=== PATIENT | male | born 1975 | race Caucasian/White ===

== ENCOUNTER 2019-05-31 00:45 | Emergency (ER) | payer OTHER ==
--- NOTE | 2019-05-31 01:28 | ED ---
Alcohol HPI - General Chief Complaint: Alcohol Stated Complaint: ETOH Time Seen by Provider: 05/31/19 00:51 Source: patient, EMS Mode of arrival: EMS Limitations: no limitations - History of Present Illness Initial Comments: Leo is a 43yo alcoholic male who presents to the emergency department via ambulance for evaluation of alcohol intoxication. Patient was found to be sleeping in a restroom of a local gas station, police were called, patient was found to be intoxicated and decision was made to have him transported to the hospital for evaluation. Patient reports he drank a fifth of vodka today. He reports that he drinks every day. Patient reports he is currently homeless and walks around all day every day. Patient denies any thoughts of self-harm, suicidal ideation. MD Complaint: alcohol intoxication - Related Data Allergies Allergy/AdvReac Type Severity Reaction Status Date / Time Penicillins Allergy Anaphylaxis Verified 05/31/19 01:02 Review of Systems ROS Statement: Those systems with pertinent positive or pertinent negative responses have been documented in the HPI. ROS Other: All systems not noted in ROS Statement are negative. Past Medical History History of Any Multi-Drug Resistant Organisms: None Reported Past Psychological History: Anxiety Smoking Status: Current every day smoker Past Alcohol Use History: Abuse Past Drug Use History: Marijuana General Exam - General Exam Comments Initial Comments: Physical Exam GENERAL: Patient is well-developed and well-nourished. Patient is nontoxic and well-hydrated and is in no distress. HENT: Normocephalic, Atraumatic. EYES: PERRL, EOMI PULMONARY: Unlabored respirations. CARDIOVASCULAR: RRR Warm and well perfused extremities ABDOMEN: Non-distended SKIN: No rashes or bruising : Deferred NEUROLOGIC: Alert and oriented Slurred speech MUSCULOSKELETAL: Moving all extremities with no apparent injury PSYCHIATRIC: No SI/HI Limitations: no limitations Course Vital Signs 05/31/19 05/31/19 05/31/19 00:57 05:00 06:00 Temperature 97.0 F L Pulse Rate 82 86 82 Respiratory 16 16 16 Rate Blood Pressure 126/90 O2 Sat by Pulse 97 96 96 Oximetry Medical Decision Making - Medical Decision Making The patient was seen and evaluated, history is obtained from the patient and PD Patient was found to be intoxicated in a public establishment thus was brought here Patient states that he has been drunk for 7 years and that he hallucinates when he tries to get sober that he does not want to get sober patient denies any complaints Patient will sleep here in the emergency department until clinical sobriety, considering that the patient is a chronic alcoholic I do suspect he will develop withdrawal if we hold him here until complete sobriety Patient was evaluated 6:30 in the morning, at this time patient is speaking clearly, able to sit on the edge of the bed leaned forward put on socks ambulate with a normal gait. At this time patient is clinically sober. He was given food and discharged in stable condition. Disposition Clinical Impression: Alcoholic intoxication Disposition: HOME SELF-CARE Condition: Stable Instructions (If sedation given, give patient instructions): Alcohol Intoxication (ED) Is patient prescribed a controlled substance at d/c from ED?: No Referrals: None,Stated [Primary Care Provider] - 1-2 days
[2019-05-31 06:48] VITALS: BP 109/72; PULSE 77; RESP 15; TEMP 97.7
== END 2019-05-31 06:50 | disposition home or self-care (01) ==
LOC: EC 00:45
DX: F10.129 Alcohol abuse with intoxication, unspecified (principal); F17.200 Nicotine dependence, unspecified, uncomplicated; Z59.0 Homelessness; Z88.0 Allergy status to penicillin
CPT/HCPCS: 99284

== ENCOUNTER 2019-06-01 03:59 | Observation (INO) | payer OTHER ==
[2019-06-01] MEDS ORDERED: SODIUM CHLORIDE 0.9% 1,000 ML IV STA (04:01)
[2019-06-01] MEDS ORDERED: DIPH,PERTUS(ACELL)TETVAC-LF 0.5 ML VIAL IM ONE (04:01)
[2019-06-01] MEDS ORDERED: VANCOMYCIN IV PER PHARMACY 1 EACH MISC MISCELLANE PRN (04:04)
--- NOTE | 2019-06-01 04:43 | ED ---
Fall HPI - General Chief Complaint: Fall Stated Complaint: ETOH, hand injury Time Seen by Provider: 06/01/19 04:01 Source: patient, EMS Mode of arrival: EMS - History of Present Illness Initial Comments: Loe is a 43-year-old alcoholic male who presents to the emergency department today with police and EMS for evaluation of alcohol intoxication and injury. Per the patient he fell. He offers no further history. Patient is noted have a 2 cm laceration over left eyebrow and an open fracture of the fifth digit on the right hand. - Related Data Allergies Allergy/AdvReac Type Severity Reaction Status Date / Time Penicillins Allergy Anaphylaxis Verified 05/31/19 01:02 Review of Systems ROS Statement: Those systems with pertinent positive or pertinent negative responses have been documented in the HPI. ROS Other: All systems not noted in ROS Statement are negative. Past Medical History History of Any Multi-Drug Resistant Organisms: None Reported Past Surgical History: Orthopedic Surgery Additional Past Surgical History / Comment(s): Back fx x 3 Past Psychological History: Anxiety Smoking Status: Current every day smoker Past Alcohol Use History: Abuse Past Drug Use History: Marijuana General Exam - General Exam Comments Initial Comments: Physical Exam GENERAL: Patient is well-developed and well-nourished. HENT: Normocephalic Approximately 2 cm laceration over left eyebrow No cummings signs or raccoon eyes EYES: PERRL, EOMI PULMONARY: Unlabored respirations. CARDIOVASCULAR: Tachycardic, regular ABDOMEN: Non-distended SKIN: Macerated laceration to the right pinky with visible tuft fracture Maceration of skin over the ring finger and middle finger of the right hand as well : Deferred NEUROLOGIC: Alert and oriented Slurred speech Ambulating independently MUSCULOSKELETAL: Moving all extremities PSYCHIATRIC: Agitation Course Vital Signs 06/01/19 06/01/19 04:12 07:00 Temperature 96.0 F L Pulse Rate 111 H 115 H Respiratory 20 20 Rate Blood Pressure 121/89 132/80 O2 Sat by Pulse 97 97 Oximetry Medical Decision Making - Medical Decision Making Patient was seen and evaluated upon arrival in the emergency Department patient has an obvious open fracture of the distal right pinky finger as well as a small laceration over his left eyebrow, patient's unable to provide any reliable history he is apparently told the police multiple different stories about what it happened and how he got to where he was picked up. Given that we don't know the injury computed tomography scan of the brain and C-spine was obtained. Patient refusing cervical spine immobilization. Patient is somewhat combative with staff but relaxes when left alone. IV antibiotics ordered, due to patient's reported history of anaphylaxis to penicillins vancomycin was ordered for the open fracture Uncertain tetanus status therefore tDaP ordered CT brain cervical spine negative X-ray confirms an open tuft fracture Labs consistent with significant alcohol intoxication no other significant abnormalities are noted X-ray findings were discussed with orthopedic plant controls specialist Dr. Wells who recommends washout, suturing of possible and nonadherent dressing I attempted to anesthetize the patient's finger for washout however patient became combative and threatening to hit me and staff, attempting to hit staff members. At this time decision was made to place the patient in 4. restraints for staff safety. Medications were ordered to decrease agitation Dr. Wells was updated, inability to close the patient's open finger, recommended nonadherent dressing and he will evaluate later Patient care was discussed with general surgery on-call Dr. Reyes, given the patient's level of intoxication and signs of trauma we will plan to admit for trauma clearance. Dr. Reyes requests medicine be on consult for possible alcohol withdrawal. - Lab Data Result diagrams: 06/01/19 04:55 06/01/19 04:55 Lab Results 06/01/19 06/01/19 06/01/19 Range/Units 04:55 04:55 04:55 WBC 5.9 (3.8-10.6) k/uL RBC 4.77 (4.30-5.90) m/uL Hgb 16.4 (13.0-17.5) gm/dL Hct 49.9 (39.0-53.0) % MCV 104.5 H (80.0-100.0) fL MCH 34.3 (25.0-35.0) pg MCHC 32.9 (31.0-37.0) g/dL RDW 12.3 (11.5-15.5) % Plt Count 276 (150-450) k/uL Neutrophils % 47 % Lymphocytes % 42 % Monocytes % 7 % Eosinophils % 1 % Basophils % 1 % Neutrophils # 2.8 (1.3-7.7) k/uL Lymphocytes # 2.5 (1.0-4.8) k/uL Monocytes # 0.4 (0-1.0) k/uL Eosinophils # 0.1 (0-0.7) k/uL Basophils # 0.0 (0-0.2) k/uL Macrocytosis Slight PT 9.4 (9.0-12.0) sec INR 0.9 (<1.2) APTT 22.9 (22.0-30.0) sec Sodium 146 H (137-145) mmol/L Potassium 4.2 (3.5-5.1) mmol/L Chloride 108 H (98-107) mmol/L Carbon Dioxide 27 (22-30) mmol/L Anion Gap 11 mmol/L BUN 9 (9-20) mg/dL Creatinine 0.76 (0.66-1.25) mg/dL Est GFR (CKD-EPI)AfAm >90 (>60 ml/min/1.73 sqM) Est GFR (CKD-EPI)NonAf >90 (>60 ml/min/1.73 sqM) Glucose 94 (74-99) mg/dL Calcium 9.6 (8.4-10.2) mg/dL Total Bilirubin 0.2 (0.2-1.3) mg/dL AST 38 (17-59) U/L ALT 20 (4-49) U/L Alkaline Phosphatase 87 (38-126) U/L Total Protein 7.8 (6.3-8.2) g/dL Albumin 5.0 (3.5-5.0) g/dL Serum Alcohol 336 H* mg/dL Blood Type Blood Type Confirm Blood Type Recheck Bld Type Recheck Status Antibody Screen Spec Expiration Date 06/01/19 06/01/19 Range/Units 04:55 06:35 WBC (3.8-10.6) k/uL RBC (4.30-5.90) m/uL Hgb (13.0-17.5) gm/dL Hct (39.0-53.0) % MCV (80.0-100.0) fL MCH (25.0-35.0) pg MCHC (31.0-37.0) g/dL RDW (11.5-15.5) % Plt Count (150-450) k/uL Neutrophils % % Lymphocytes % % Monocytes % % Eosinophils % % Basophils % % Neutrophils # (1.3-7.7) k/uL Lymphocytes # (1.0-4.8) k/uL Monocytes # (0-1.0) k/uL Eosinophils # (0-0.7) k/uL Basophils # (0-0.2) k/uL Macrocytosis PT (9.0-12.0) sec INR (<1.2) APTT (22.0-30.0) sec Sodium (137-145) mmol/L Potassium (3.5-5.1) mmol/L Chloride (98-107) mmol/L Carbon Dioxide (22-30) mmol/L Anion Gap mmol/L BUN (9-20) mg/dL Creatinine (0.66-1.25) mg/dL Est GFR (CKD-EPI)AfAm (>60 ml/min/1.73 sqM) Est GFR (CKD-EPI)NonAf (>60 ml/min/1.73 sqM) Glucose (74-99) mg/dL Calcium (8.4-10.2) mg/dL Total Bilirubin (0.2-1.3) mg/dL AST (17-59) U/L ALT (4-49) U/L Alkaline Phosphatase (38-126) U/L Total Protein (6.3-8.2) g/dL Albumin (3.5-5.0) g/dL Serum Alcohol mg/dL Blood Type AB Positive Blood Type Confirm AB Positive Blood Type Recheck No Previous Record Bld Type Recheck Status CABO Indicated Antibody Screen NEGATIVE Spec Expiration Date 06/04/2019 - 235 Disposition Clinical Impression: Alcoholic intoxication, Open fracture of tuft of distal phalanx of finger, Facial laceration Disposition: ADMITTED IP TO THIS [facility] Condition: Serious Is patient prescribed a controlled substance at d/c from ED?: No
--- NOTE | 2019-06-01 04:54 | CT ---
EXAMINATION TYPE: CT brain cspine wo con DATE OF EXAM: 06/01/2019 COMPARISON: None HISTORY: etoh fall CT DLP: 1392.9 mGycm Automated exposure control for dose reduction was used. Exam performed without contrast. Ventricles have fairly normal size. There is no mass effect nor midline shift. There is no sign of in tracranial hemorrhage. Calvarium is intact. Cervical vertebra have fairly normal spacing and alignment. Posterior elements are intact. Skull base is intact. Facet joints are intact. I see no bony destructive process. IMPRESSION: Negative CT scan of the brain. Negative CT scan cervical spine.
--- NOTE | 2019-06-01 04:56 | XR ---
EXAMINATION TYPE: XR hand complete RT DATE OF EXAM: 06/01/2019 COMPARISON: NONE HISTORY: Pain. Fall. TECHNIQUE: 3 views FINDINGS: There are plates and screws fixing the fourth and fifth metacarpals. There is comminuted fr acture of the tuft of the distal phalanx of the little finger. There is mild spurring at the DIP join t of the little finger. The MP joints appear normal. Carpal bones appear intact. IMPRESSION: Acute comminuted fracture of the tuft of the distal phalanx of the little finger.
[2019-06-01] MEDS ORDERED: MORPHINE SULFATE 4 MG/ML SYRINGE IM STA (05:08)
[2019-06-01] MEDS: VANCOMYCIN 1,500 MG in SODIUM CHLORIDE 0.9% 250 ML IVPB ONE ×2 (05:20→05:28)
[2019-06-01 05:27] LABS: Basophils % (A) 1 %; Eosinophils # (A) 0.1 k/uL (0-0.7); Eosinophils % (A) 1 %; HCT 49.9 % (39.0-53.0); HGB 16.4 gm/dL (13.0-17.5); Lymphocytes # (A) 2.5 k/uL (1.0-4.8); Lymphocytes % (A) 42 %; MCH 34.3 pg (25.0-35.0); MCHC 32.9 g/dL (31.0-37.0); MCV 104.5 fL (80.0-100.0); Macrocytosis Slight; Mean Platelet Volume 7.8; Monocytes # (A) 0.4 k/uL (0-1.0); Monocytes % (A) 7 %; Neutrophils # (A) 2.8 k/uL (1.3-7.7); Neutrophils % (A) 47 %; Platelet Count 276 k/uL (150-450); RBC 4.77 m/uL (4.30-5.90); RDW 12.3 % (11.5-15.5); WBC 5.9 k/uL (3.8-10.6)
[2019-06-01 05:36] LABS: ALT 20 U/L (4-49); AST 38 U/L (17-59); African American GFR (CKD) >90 (>60 ml/min/1.73 sqM); Alkaline Phosphatase 87 U/L (38-126); Anion Gap 11 mmol/L; Blood Urea Nitrogen 9 mg/dL (9-20); Calcium 9.6 mg/dL (8.4-10.2); Carbon Dioxide 27 mmol/L (22-30); Chloride 108 mmol/L (98-107); Glucose 94 mg/dL (74-99); Non-African American GFR(CKD) >90 (>60 ml/min/1.73 sqM); Potassium 4.2 mmol/L (3.5-5.1); Sodium 146 mmol/L (137-145); Total Bilirubin 0.2 mg/dL (0.2-1.3); Total Protein 7.8 g/dL (6.3-8.2)
[2019-06-01] MEDS ORDERED: LIDOCAINE 1% INJ 10MG/ML (20 ML MDV) SQ ONE (05:36)
[2019-06-01 05:42] LABS: INR 0.9 (<1.2); Partial Thromboplastin Time 22.9 sec (22.0-30.0); Prothrombin Time 9.4 sec (9.0-12.0)
[2019-06-01 05:48] LABS: Alcohol 336 mg/dL
[2019-06-01] MEDS ORDERED: NALOXONE 0.4 MG/ML 1 ML VIAL IV PRN (07:00)
[2019-06-01] MEDS ORDERED: IBUPROFEN 400 MG TAB PO PRN (07:05)
[2019-06-01] MEDS ORDERED: LORazepam 2 MG/ML INJ IV PRN ×4 (07:10)
[2019-06-01] MEDS ORDERED: THIAMINE 100 MG/ML 2 ML VIAL IM STA (07:10)
[2019-06-01] MEDS ORDERED: LORazepam 2 MG/ML INJ IM STA (07:44)
[2019-06-01] MEDS ORDERED: diphenhydrAMINE 50 MG/ML 1 ML VIAL IM STA (07:44)
[2019-06-01] MEDS ORDERED: HALOPERIDOL LACTATE 5 MG/ML 1 ML VIAL IM STA (07:44)
[2019-06-01 08:12] LABS: Appearance,Urine Clear (Clear); Bilirubin,Urine Negative (Negative); Blood,Urine Negative (Negative); Color,Urine Light Yellow; Glucose,Urine (UA) Negative (Negative); Ketones,Urine Negative (Negative); Leukocyte Esterase,Urine Negative (Negative); Nitrite,Urine Negative (Negative); PH, Urine 5.5 (5.0-8.0); Protein,Urine Trace (Negative); Specific Gravity,Urine 1.006 (1.001-1.035); Urobilinogen,Urine <2.0 mg/dL (<2.0)
--- NOTE | 2019-06-01 08:14 | ED ---
Medical Decision Making - Lab Data Result diagrams: 06/01/19 04:55 06/01/19 04:55 Lab Results 06/01/19 06/01/19 06/01/19 Range/Units 04:55 04:55 04:55 WBC 5.9 (3.8-10.6) k/uL RBC 4.77 (4.30-5.90) m/uL Hgb 16.4 (13.0-17.5) gm/dL Hct 49.9 (39.0-53.0) % MCV 104.5 H (80.0-100.0) fL MCH 34.3 (25.0-35.0) pg MCHC 32.9 (31.0-37.0) g/dL RDW 12.3 (11.5-15.5) % Plt Count 276 (150-450) k/uL Neutrophils % 47 % Lymphocytes % 42 % Monocytes % 7 % Eosinophils % 1 % Basophils % 1 % Neutrophils # 2.8 (1.3-7.7) k/uL Lymphocytes # 2.5 (1.0-4.8) k/uL Monocytes # 0.4 (0-1.0) k/uL Eosinophils # 0.1 (0-0.7) k/uL Basophils # 0.0 (0-0.2) k/uL Macrocytosis Slight PT 9.4 (9.0-12.0) sec INR 0.9 (<1.2) APTT 22.9 (22.0-30.0) sec Sodium 146 H (137-145) mmol/L Potassium 4.2 (3.5-5.1) mmol/L Chloride 108 H (98-107) mmol/L Carbon Dioxide 27 (22-30) mmol/L Anion Gap 11 mmol/L BUN 9 (9-20) mg/dL Creatinine 0.76 (0.66-1.25) mg/dL Est GFR (CKD-EPI)AfAm >90 (>60 ml/min/1.73 sqM) Est GFR (CKD-EPI)NonAf >90 (>60 ml/min/1.73 sqM) Glucose 94 (74-99) mg/dL Calcium 9.6 (8.4-10.2) mg/dL Total Bilirubin 0.2 (0.2-1.3) mg/dL AST 38 (17-59) U/L ALT 20 (4-49) U/L Alkaline Phosphatase 87 (38-126) U/L Total Protein 7.8 (6.3-8.2) g/dL Albumin 5.0 (3.5-5.0) g/dL Serum Alcohol 336 H* mg/dL Blood Type Blood Type Confirm Blood Type Recheck Bld Type Recheck Status Antibody Screen Spec Expiration Date 06/01/19 06/01/19 Range/Units 04:55 06:35 WBC (3.8-10.6) k/uL RBC (4.30-5.90) m/uL Hgb (13.0-17.5) gm/dL Hct (39.0-53.0) % MCV (80.0-100.0) fL MCH (25.0-35.0) pg MCHC (31.0-37.0) g/dL RDW (11.5-15.5) % Plt Count (150-450) k/uL Neutrophils % % Lymphocytes % % Monocytes % % Eosinophils % % Basophils % % Neutrophils # (1.3-7.7) k/uL Lymphocytes # (1.0-4.8) k/uL Monocytes # (0-1.0) k/uL Eosinophils # (0-0.7) k/uL Basophils # (0-0.2) k/uL Macrocytosis PT (9.0-12.0) sec INR (<1.2) APTT (22.0-30.0) sec Sodium (137-145) mmol/L Potassium (3.5-5.1) mmol/L Chloride (98-107) mmol/L Carbon Dioxide (22-30) mmol/L Anion Gap mmol/L BUN (9-20) mg/dL Creatinine (0.66-1.25) mg/dL Est GFR (CKD-EPI)AfAm (>60 ml/min/1.73 sqM) Est GFR (CKD-EPI)NonAf (>60 ml/min/1.73 sqM) Glucose (74-99) mg/dL Calcium (8.4-10.2) mg/dL Total Bilirubin (0.2-1.3) mg/dL AST (17-59) U/L ALT (4-49) U/L Alkaline Phosphatase (38-126) U/L Total Protein (6.3-8.2) g/dL Albumin (3.5-5.0) g/dL Serum Alcohol mg/dL Blood Type AB Positive Blood Type Confirm AB Positive Blood Type Recheck No Previous Record Bld Type Recheck Status CABO Indicated Antibody Screen NEGATIVE Spec Expiration Date 06/04/2019 - 235 Disposition Clinical Impression: Alcoholic intoxication, Open fracture of tuft of distal phalanx of finger, Facial laceration Disposition: ADMITTED IP TO THIS [facility] Condition: Serious Procedures - [place] Protocol (Time Out) Nurse: Genesis Mireles - Restraint - Face to Face Restraint Occurrence 1 Patient's Immediate Situation: Endangers others' safety, Violent behavior Patient's Reaction to the Intervention: Aggressive, Combative, Resistive to care Patient's Medical & Behavioral Condition: Awake, Agitated Need to Continue or Terminate Restraint or Seclusion: Continue Face to Face Eval of Restraint Date: 06/01/19 Face to Face Eval of Restraint Time: 07:21
[2019-06-01 08:22] LABS: Amphetamine Screen,Urine Not Detected (NotDetected); Barbiturate Screen,Urine Not Detected (NotDetected); Benzodiazepines Screen,Urine Not Detected (NotDetected); Cocaine Screen,Urine Not Detected (NotDetected); Methadone Screen, Urine Not Detected (NotDetected); Opiate Screen,Urine Detected (NotDetected); Oxycodone Screen, Urine Not Detected (NotDetected); Phencyclidine Screen,Urine Not Detected (NotDetected); Tricyclic Antidepressant,Urine Not Detected (NotDetected); Urn Cannabinoid Scrn Not Detected (NotDetected)
--- NOTE | 2019-06-01 11:36 | P.GSHP ---
History of Present Illness H&P Date: 06/01/19 Chief Complaint: Alcohol intoxication, open fracture of the finger The patient is a 43-year-old man who is a daily drinker. He was brought into the emergency department for acute alcohol intoxication with injury from falling. He was found to have a laceration above the left eye and an open fracture of the right fifth finger and was admitted. The patient is currently fairly sedated so history is obtained from the chart - Review of Systems Comment: Patient not answering questions All systems: negative Past Medical History History of Any Multi-Drug Resistant Organisms: None Reported Past Surgical History: Orthopedic Surgery Additional Past Surgical History / Comment(s): Back fx x 3 Past Psychological History: Anxiety Smoking Status: Current every day smoker Past Alcohol Use History: Abuse Past Drug Use History: Marijuana Medications and Allergies Allergies Allergy/AdvReac Type Severity Reaction Status Date / Time Penicillins Allergy Anaphylaxis Verified 05/31/19 01:02 Surgical - Exam Osteopathic Statement: *. No significant issues noted on an osteopathic structural exam other than those noted in the History and Physical/Consult. Vital Signs Temp Pulse Resp BP Pulse Ox 96.0 F L 111 H 20 121/89 97 06/01/19 04:12 06/01/19 04:12 06/01/19 04:12 06/01/19 04:12 06/01/19 04:12 - General Sedated well nourished, no distress - Eyes PERRL - ENT Laceration above the left eye with no significant ecchymosis - Neck trachea midline - Respiratory normal respiratory effort, clear to auscultation - Cardiovascular Rhythm: regular - Abdomen Abdomen: soft, non tender - Integumentary Abrasions on the left face and right hand. Right fourth and fifth digits are wrapped - Psychiatric Mumbles with verbal and tactile stimulation Results - Labs 06/01/19 04:55 06/01/19 04:55 Abnormal Lab Results - Last 24 Hours (Table) 06/01/19 06/01/19 06/01/19 Range/Units 04:55 04:55 08:01 MCV 104.5 H (80.0-100.0) fL Sodium 146 H (137-145) mmol/L Chloride 108 H (98-107) mmol/L Urine Protein Trace H (Negative) Urine Opiates Screen Detected H (NotDetected) Serum Alcohol 336 H* mg/dL Diabetes panel 06/01/19 Range/Units 04:55 Sodium 146 H (137-145) mmol/L Potassium 4.2 (3.5-5.1) mmol/L Chloride 108 H (98-107) mmol/L Carbon Dioxide 27 (22-30) mmol/L BUN 9 (9-20) mg/dL Creatinine 0.76 (0.66-1.25) mg/dL Glucose 94 (74-99) mg/dL Calcium 9.6 (8.4-10.2) mg/dL AST 38 (17-59) U/L ALT 20 (4-49) U/L Alkaline Phosphatase 87 (38-126) U/L Total Protein 7.8 (6.3-8.2) g/dL Albumin 5.0 (3.5-5.0) g/dL Calcium panel 06/01/19 Range/Units 04:55 Calcium 9.6 (8.4-10.2) mg/dL Albumin 5.0 (3.5-5.0) g/dL Pituitary panel 06/01/19 Range/Units 04:55 Sodium 146 H (137-145) mmol/L Potassium 4.2 (3.5-5.1) mmol/L Chloride 108 H (98-107) mmol/L Carbon Dioxide 27 (22-30) mmol/L BUN 9 (9-20) mg/dL Creatinine 0.76 (0.66-1.25) mg/dL Glucose 94 (74-99) mg/dL Calcium 9.6 (8.4-10.2) mg/dL Adrenal panel 06/01/19 Range/Units 04:55 Sodium 146 H (137-145) mmol/L Potassium 4.2 (3.5-5.1) mmol/L Chloride 108 H (98-107) mmol/L Carbon Dioxide 27 (22-30) mmol/L BUN 9 (9-20) mg/dL Creatinine 0.76 (0.66-1.25) mg/dL Glucose 94 (74-99) mg/dL Calcium 9.6 (8.4-10.2) mg/dL Total Bilirubin 0.2 (0.2-1.3) mg/dL AST 38 (17-59) U/L ALT 20 (4-49) U/L Alkaline Phosphatase 87 (38-126) U/L Total Protein 7.8 (6.3-8.2) g/dL Albumin 5.0 (3.5-5.0) g/dL - Imaging Additional studies: X-rays the hand were reviewed Assessment and Plan (1) Alcoholic intoxication Current Visit: Yes Status: Acute Code(s): F10.929 - ALCOHOL USE, UNSPECIFIED WITH INTOXICATION, UNSPECIFIED SNOMED Code(s): 04301539 (2) Facial laceration Current Visit: Yes Status: Acute Code(s): S01.81XA - LACERATION W/O FOREIGN BODY OF OTH PART OF HEAD, INIT ENCNTR SNOMED Code(s): 525627735 (3) Open fracture of tuft of distal phalanx of finger Current Visit: Yes Status: Acute Code(s): S62.639B - DISP FX OF DISTAL PHALANX OF UNSP FINGER, INIT FOR OPN FX SNOMED Code(s): 486457479 Plan: The patient is admitted on IV antibiotics. Ciwa protocol is followed. DVT and ulcer prophylaxis. Await recommendations from orthopedic surgery
[2019-06-01] MEDS: VANCOMYCIN 1,250 MG in SODIUM CHLORIDE 0.9% 250 ML IVPB SCH ×2 (13:52→22:08)
--- NOTE | 2019-06-01 14:46 | P.CONS ---
History of Present Illness - Reason for Consult Consult date: 06/01/19 Medical Management Requesting physician: Nesha Puente - Chief Complaint Alcohol intoxication and injury - History of Present Illness This is a 43-year-old male who presents to the emergency department with police and EMS after being found with injury and alcohol intoxication. The patient states that he fell, but he is uncertain how. Patient admits that he drinks a fifth or a pint of vodka every other day. Patient further admits to marijuana use occasionally. When patient was evaluated in the emergency department he was found to have a 2 cm laceration over the left eyebrow and an open fracture of the fifth digit on the right hand. Patient is currently mildly sedated but awake and aware. Patient is currently on CIWA protocol. Patient currently denies chest pain, shortness of breath, nausea, vomiting, fevers, or chills. Patient does admit to anxiety and depression with no treatment. Patient declined treatment at this time. Patient denies suicidal thoughts or ideation. Patient does admit to history of hypothyroid which has gone untreated for many years. Patient states that he does not have a primary care physician. Review of Systems Constitutional: Reports fatigue, Reports malaise Eyes: denies as per HPI, denies blurred vision, denies bulging eye, denies decreased vision, denies diplopia, denies discharge, denies dry eye, denies irritation, denies itching, denies pain, denies photophobia, denies loss of peripheral vision, denies loss of vision, denies tunnel vision/blind spots Ears: deny: decreased hearing, ear discharge, earache, tinnitus Ears, nose, mouth and throat: Denies headache, Denies sore throat Cardiovascular: Denies chest pain, Denies shortness of breath Respiratory: Denies cough Gastrointestinal: Denies abdominal pain, Denies diarrhea, Denies nausea, Denies vomiting Genitourinary: Reports as per HPI Musculoskeletal: Reports as per HPI, Reports fractures, Denies myalgias Musculoskeletal: right: hand pain, hand swelling Integumentary: Reports wounds Neurological: Reports as per HPI Endocrine: Reports fatigue Hematologic/Lymphatic: Reports as per HPI Allergic/Immunologic: Reports as per HPI Past Medical History Past Medical History: Thyroid Disorder Additional Past Medical History / Comment(s): PT REPORTING THAT HE HAS BEEN TOLD HE HAS AN ENLARGED THYROID, "BROKE MY BACK" History of Any Multi-Drug Resistant Organisms: None Reported Past Surgical History: Orthopedic Surgery Additional Past Surgical History / Comment(s): Back fx x 3 Past Anesthesia/Blood Transfusion Reactions: No Reported Reaction Past Psychological History: Anxiety Smoking Status: Current every day smoker Past Alcohol Use History: Abuse Past Drug Use History: Marijuana - Past Family History Father History Unknown: Yes Mother History Unknown: Yes Medications and Allergies Allergies Allergy/AdvReac Type Severity Reaction Status Date / Time Penicillins Allergy Anaphylaxis Verified 05/31/19 01:02 Physical Exam Osteopathic Statement: *. No significant issues noted on an osteopathic structural exam other than those noted in the History and Physical/Consult. Vitals: Vital Signs Temp Pulse Pulse Resp BP BP Pulse Ox 06/01/19 13:23 16 06/01/19 08:45 97.7 F 106 H 18 99/61 96 06/01/19 08:00 97.8 F 89 20 134/77 100 06/01/19 07:00 115 H 20 132/80 97 06/01/19 04:12 96.0 F L 111 H 20 121/89 97 Intake and Output 05/31/19 06/01/19 06/01/19 22:59 06:59 14:59 Other: # Voids 0 # Bowel Movements 0 Weight 83.915 kg 83.915 kg General: [non toxic], [no distress], [appears at stated age] Derm: [warm], [dry] Head: [small lacerations on head], [normocephalic], [symmetric] Eyes: [EOMI], [no lid lag], [anicteric sclera] Mouth: [no lip lesion], [mucus membranes moist] Cardiovascular: [S1S2 reg], [no murmur], [positive posterior tibial pulse peterson ateral], Lungs: [CTA bilateral], [no rhonchi, no rales] , [no accessory muscle use] Abdominal: [soft], [ nontender to palpation], [no guarding], [no appreciable organomegaly] Ext: [no gross muscle atrophy], [no edema], [right 5th digit open fracture with swelling and erythema] Neuro: [ CN II-XI grossly intact], [no focal neuro deficits] Psych: [Alert], [oriented], [appropriate affect denies suicidal ideation or thought] Results CBC & Chem 7: 06/01/19 04:55 06/01/19 04:55 Labs: Abnormal Lab Results - Last 24 Hours (Table) 06/01/19 06/01/19 06/01/19 Range/Units 04:55 04:55 08:01 MCV 104.5 H (80.0-100.0) fL Sodium 146 H (137-145) mmol/L Chloride 108 H (98-107) mmol/L Urine Protein Trace H (Negative) Urine Opiates Screen Detected H (NotDetected) Serum Alcohol 336 H* mg/dL Assessment and Plan Assessment: Acute alcohol intoxication - Continue CIWA protocol - IV hydration - Folic acid and thiamine daily Hx of hypothyroid with goiter not currently being treated - TSH with reflex ordered Tobacco dependence - Nicoderm CQ 21mg daily Right 5th digit open fracture -Continue IV antibiotics -Ortho recommendations appreciated Hx of anxiety and depression -Patient declined treatment Hx of Marijuana use GI and DVT prophylaxis Daily labs Thank you for allowing [facility] to participate in the care of this patient. 45 minutes spent with patient. Greatr than 50% face to face time coordinating care and counselling patient
[2019-06-01] MEDS: PANTOPRAZOLE 40 MG TABLET PO SCH (15:18)
[2019-06-01] MEDS: HYDROcodone/APAP 7.5-325MG 1 EACH TAB PO PRN ×2 (15:18→21:11)
[2019-06-01] MEDS: NICOTINE 21MG/24HR PATCH TRANSDERM SCH (15:19)
[2019-06-01] MEDS: FOLIC ACID 1 MG TAB PO SCH (15:19)
[2019-06-01] MEDS: THIAMINE 100 MG TAB PO SCH (15:19)
[2019-06-01 17:54] LABS: T4, Free (Free Thyroxine) 1.45 ng/dL (0.78-2.19)
[2019-06-02] MEDS: HYDROcodone/APAP 7.5-325MG 1 EACH TAB PO PRN ×3 (05:15→22:44)
[2019-06-02] MEDS: VANCOMYCIN 1,250 MG in SODIUM CHLORIDE 0.9% 250 ML IVPB SCH ×3 (05:16→21:16)
[2019-06-02 07:12] LABS: Glucose,Whole Blood 84 mg/dL (75-99)
[2019-06-02 07:42] LABS: Basophils % (A) 0 %; Eosinophils # (A) 0.1 k/uL (0-0.7); Eosinophils % (A) 1 %; HCT 41.6 % (39.0-53.0); HGB 13.7 gm/dL (13.0-17.5); Lymphocytes # (A) 0.9 k/uL (1.0-4.8); Lymphocytes % (A) 20 %; MCH 34.5 pg (25.0-35.0); MCV 104.6 fL (80.0-100.0); Macrocytosis Slight; Mean Platelet Volume 8.2; Monocytes # (A) 0.3 k/uL (0-1.0); Monocytes % (A) 6 %; Neutrophils # (A) 3.3 k/uL (1.3-7.7); Neutrophils % (A) 71 %; Platelet Count 159 k/uL (150-450); RBC 3.98 m/uL (4.30-5.90); WBC 4.6 k/uL (3.8-10.6)
[2019-06-02 07:51] LABS: ALT 16 U/L (4-49); AST 36 U/L (17-59); African American GFR (CKD) >90 (>60 ml/min/1.73 sqM); Albumin 3.4 g/dL (3.5-5.0); Alkaline Phosphatase 69 U/L (38-126); Anion Gap 5 mmol/L; Blood Urea Nitrogen 10 mg/dL (9-20); Calcium 9.3 mg/dL (8.4-10.2); Carbon Dioxide 25 mmol/L (22-30); Chloride 106 mmol/L (98-107); Glucose 85 mg/dL (74-99); Non-African American GFR(CKD) >90 (>60 ml/min/1.73 sqM); Potassium 3.9 mmol/L (3.5-5.1); Sodium 136 mmol/L (137-145); Total Protein 5.8 g/dL (6.3-8.2)
[2019-06-02] MEDS: FOLIC ACID 1 MG TAB PO SCH (10:20)
[2019-06-02] MEDS: PANTOPRAZOLE 40 MG TABLET PO SCH (10:20)
[2019-06-02] MEDS: THIAMINE 100 MG TAB PO SCH ×2 (10:20→20:36)
[2019-06-02] MEDS: NICOTINE 21MG/24HR PATCH TRANSDERM SCH (10:21)
--- NOTE | 2019-06-02 11:06 | P.PN ---
Subjective Progress Note Date: 06/02/19 Patient seen and examined at bedside, sleeping comfortably overnight. Nursing reporting minimal signs and symptoms of alcohol withdrawal current CIWA score 0. Patient awaiting evaluation by orthopedics Objective - Vital Signs Vital signs: Vital Signs Temp 96.7 F L 06/02/19 05:00 Pulse 94 06/02/19 05:00 Resp 16 06/02/19 05:00 BP 113/67 06/02/19 05:00 Pulse Ox 96 06/02/19 05:00 Intake & Output 06/01/19 06/02/19 06/02/19 18:59 06:59 18:59 Intake Total 590 Balance 590 Weight 83.915 kg Intake: Oral 590 Other: Voiding Method Toilet # Voids 0 2 # Bowel Movements 0 - Exam Constitutional: No acute distress, conversant, pleasant Eyes: Anicteric sclerae, moist conjunctiva, no lid-lag, PERRLA ENMT: NC/AT,Oropharynx clear, no erythema, exudates Neck:Supple, FROM, no masses, or JVD, No carotid bruits; No thyromegaly Lungs: Clear to auscultation, Clear to percussion, Normal respiratory effort, no accessory muscle use Cardiovascular: Heart regular in rate and rhythm, No murmurs, gallops, or rubs no peripheral edema Abdominal: Soft Nontender, nom distended, no guarding, no rebound or rigidity, Normoactive bowel sounds No hepatomegaly, No splenomegaly, No palpable mass No abdominal wall hernia noted Skin: Normal temperature, tone, texture, turgor, No induration No subcutaneous nodules, No rash, lesions, No ulcers Extremities:No digital cyanosis No clubbing, Pedal pulses intact, neurovascularly intact, fourth and fifth distal phalanx digits wrapped Psychiatric: Alert and oriented to person, place and time, Appropriate affect Intact judgement Neuro: Muscles Strength 5/5 in all 4 extremities, Sensation to light touch grossly present throughout, Cranial nerves II-XII grossly intact. No focal sensory deficits - Labs CBC & Chem 7: 06/02/19 07:14 06/02/19 07:14 Labs: Abnormal Lab Results - Last 24 Hours (Table) 06/01/19 06/02/19 06/02/19 Range/Units 04:55 07:14 07:14 RBC 3.98 L (4.30-5.90) m/uL MCV 104.6 H (80.0-100.0) fL Lymphocytes # 0.9 L (1.0-4.8) k/uL Sodium 136 L (137-145) mmol/L Total Protein 5.8 L (6.3-8.2) g/dL Albumin 3.4 L (3.5-5.0) g/dL TSH 4.730 H (0.465-4.680) mIU/L Assessment and Plan Assessment: Acute alcohol intoxication - Continue CIWA protocol currently scoring ~0-1 - IV hydration - Folic acid and thiamine daily Hx of hypothyroid with goiter not currently being treated - TSH with reflex ordered Tobacco dependence - Nicoderm CQ 21mg daily Right 5th digit open fracture -Continue IV antibiotics will likely be transitioned to oral antibiotics possibly Bactrim for discharge -Awaiting Ortho recommendations Hx of anxiety and depression -Patient declined treatment Hx of Marijuana use GI and DVT prophylaxis Daily labs The patient medically stable at this time, we'll sign off today
--- NOTE | 2019-06-02 11:20 | P.CNOR ---
History of Present Illness - [facility] Consult date: 06/02/19 Consult reason: fracture History of present illness: Patient is a 43-year-old male seen at bedside this morning in consultation for a right little finger tuft fracture. He presented to the emergency department with police and EMS for evaluation of alcohol intoxication and injury. Per the patient he fell. He offers no further history. He was noted to have a 2 cm laceration over left eyebrow and an open fracture of the fifth digit on the right hand. Dr. Wells who was on-call and recommended repair of laceration if possible as well as washout and antibiotics and follow-up as an outpatient. Nazario laci was uncooperative and repair was not able to be performed. Patient was admitted to trauma. He has pain in the right little finger as expected. He denies any other complaints including numbness or tingling. Review of Systems All systems: negative Constitutional: Denies chills, Denies fever Eyes: denies blurred vision, denies pain Ears, nose, mouth and throat: Denies headache, Denies sore throat Cardiovascular: Denies chest pain, Denies shortness of breath Respiratory: Denies cough Gastrointestinal: Denies abdominal pain, Denies diarrhea, Denies nausea, Denies vomiting Musculoskeletal: Denies myalgias Integumentary: Denies pruritus, Denies rash Neurological: Denies numbness, Denies weakness Psychiatric: Denies anxiety, Denies depression Endocrine: Denies fatigue, Denies weight change Past Medical History Past Medical History: Thyroid Disorder Additional Past Medical History / Comment(s): PT REPORTING THAT HE HAS BEEN TOLD HE HAS AN ENLARGED THYROID, "BROKE MY BACK" History of Any Multi-Drug Resistant Organisms: None Reported Past Surgical History: Orthopedic Surgery Additional Past Surgical History / Comment(s): Back fx x 3 Past Anesthesia/Blood Transfusion Reactions: No Reported Reaction Past Psychological History: Anxiety Smoking Status: Current every day smoker Past Alcohol Use History: Abuse Past Drug Use History: Marijuana - Past Family History Father History Unknown: Yes Mother History Unknown: Yes Medications and Allergies Home Medications Medication Instructions Recorded Confirmed Type Sulfamethox-Tmp 800-160Mg [Bactrim 1 tab PO Q12HR 10 Days #20 tab 06/02/19 Rx DS 800-160 mg] Allergies Allergy/AdvReac Type Severity Reaction Status Date / Time Penicillins Allergy Anaphylaxis Verified 06/01/19 15:24 Physical Examination Inspection of the right upper extremity and hand shows multiple small superficial abrasions and cuts consistent with a fall. Bandaging was removed from the right little finger which revealed no significant active bleeding or drainage. There is a laceration along the radial aspect of the little finger distally. No Significant deformity or protruding bone. Nail is intact in place. Sensation is intact distally at the little finger as well as other digits. Less than 2 second capillary refill is present. Range of motion of the little finger is limited due to pain. Otherwise motor is intact throughout the hand and all digits. 2+ radial pulse is present. Results X-rays of the right hand show a comminuted tuft fracture distal phalanx right little finger - Labs Labs: Abnormal Lab Results - Last 24 Hours (Table) 06/01/19 06/02/19 06/02/19 Range/Units 04:55 07:14 07:14 RBC 3.98 L (4.30-5.90) m/uL MCV 104.6 H (80.0-100.0) fL Lymphocytes # 0.9 L (1.0-4.8) k/uL Sodium 136 L (137-145) mmol/L Total Protein 5.8 L (6.3-8.2) g/dL Albumin 3.4 L (3.5-5.0) g/dL TSH 4.730 H (0.465-4.680) mIU/L H & H 06/01/19 06/02/19 Range/Units 04:55 07:14 Hgb 16.4 13.7 (13.0-17.5) gm/dL Hct 49.9 41.6 (39.0-53.0) % Coagulation 06/01/19 Range/Units 04:55 INR 0.9 (<1.2) Result Diagrams: 06/02/19 07:14 06/02/19 07:14 - Diagnostic results Wrist/Hand x-ray: report reviewed, image reviewed Assessment and Plan (1) Open fracture of tuft of distal phalanx of finger Narrative/Plan: There are no plans for emergent immediate surgical intervention. I recommended soaks with warm soapy water twice per day for 10-15 minutes followed by dressing with a nonstick Adaptic and Kerlix. I've recommended maintaining elevation above heart. Continue IV antibiotics while in-house. He may be discharged on oral antibiotics which I provided a prescription for Bactrim DS to be taken twice per day. He may follow-up as an outpatient with orthopedics where he is from in [place] or with us in 1-2 days. Thank you for consult. Current Visit: Yes Status: Acute Priority: Medium Code(s): S62.639B - DISP FX OF DISTAL PHALANX OF UNSP FINGER, INIT FOR OPN FX SNOMED Code(s): 613925091 Time with Patient: Less than 30
[2019-06-02] MEDS ORDERED: VANCOMYCIN TROUGH DUE 1 EACH MISC MISCELLANE ONE (13:00)
[2019-06-02 20:28] VITALS: BP 136/86; PULSE 74; TEMP 98.3
[2019-06-03 05:18] VITALS: RESP 15
[2019-06-03] MEDS: VANCOMYCIN 1,250 MG in SODIUM CHLORIDE 0.9% 250 ML IVPB SCH (05:40)
[2019-06-03] MEDS: HYDROcodone/APAP 7.5-325MG 1 EACH TAB PO PRN (06:21)
[2019-06-03 06:58] LABS: African American GFR (CKD) >90 (>60 ml/min/1.73 sqM); Non-African American GFR(CKD) >90 (>60 ml/min/1.73 sqM)
[2019-06-03] MEDS: THIAMINE 100 MG TAB PO SCH (08:16)
[2019-06-03] MEDS: PANTOPRAZOLE 40 MG TABLET PO SCH (08:16)
[2019-06-03] MEDS: FOLIC ACID 1 MG TAB PO SCH (08:17)
[2019-06-03] MEDS: NICOTINE 21MG/24HR PATCH TRANSDERM SCH (08:17)
--- NOTE | 2019-06-10 11:06 | P.DS ---
Providers Date of admission: 06/01/19 07:00 Expected date of discharge: 06/02/19 Attending physician: Karyn Reyes Consults: 06/01/19 07:08 Consult Physician Urgent Consulting Provider: Maged Wells Consult Reason/Comments: open finger fracture Do you want consulting provider notified?: Already Contacted 06/01/19 07:09 Consult Physician Routine Consulting Provider: Neville Mcconnell Consult Reason/Comments: medical management Do you want consulting provider notified?: Already Contacted Primary care physician: Stated None - Discharge Diagnosis(es) (1) Alcoholic intoxication Status: Acute (2) Facial laceration Status: Acute (3) Open fracture of tuft of distal phalanx of finger Status: Acute Priority: Medium Hospital Course: The patient presented with acute alcohol intoxication and an open fracture of his finger. He is given prophylactic antibiotics. Wound was washed out. He was seen by orthopedics who felt that this should be contributed treated nonsurgically. Patient Condition at Discharge: Fair Plan - Discharge Summary Discharge Rx Participant: Yes New Discharge Prescriptions: New Sulfamethox-Tmp 800-160Mg [Bactrim DS 800-160 mg] 1 tab PO Q12HR 10 Days #20 tab Discharge Medication List Sulfamethox-Tmp 800-160Mg [Bactrim DS 800-160 mg] 1 tab PO Q12HR 10 Days #20 tab 06/02/19 [Rx] Follow up Appointment(s)/Referral(s): Uriel Pena, DO [Medical Doctor] - As Needed (Please call for an appointment this week if you choose to not see a Orthopedic doctor in your area) None,Stated [Primary Care Provider] - 1-2 days Patient Instructions/Handouts: Hand Fracture (DC) Activity/Diet/Wound Care/Special Instructions: Keep wound clean and dry take meds as directed F/U Orthopedics as outpatient Elevate hand Discharge Disposition: HOME SELF-CARE
== END 2019-06-03 10:01 | disposition home or self-care (01) ==
LOC: EC 03:59 → 5NMEDONC 07:00
PROVIDERS: ADMIT Surgery; ATTEND Surgery
DX: F10.129 Alcohol abuse with intoxication, unspecified (principal); S01.112A Laceration without foreign body of left eyelid and periocular area, initial encounter; S62.636B Displaced fracture of distal phalanx of right little finger, initial encounter for open fracture; S60.414A Abrasion of right ring finger, initial encounter; S60.416A Abrasion of right little finger, initial encounter; F32.9 Major depressive disorder, single episode, unspecified; E03.9 Hypothyroidism, unspecified; E04.9 Nontoxic goiter, unspecified; Z78.1 Physical restraint status; W19.XXXA Unspecified fall, initial encounter; F41.9 Anxiety disorder, unspecified; Z88.0 Allergy status to penicillin; F17.200 Nicotine dependence, unspecified, uncomplicated; R45.6 Violent behavior; F12.90 Cannabis use, unspecified, uncomplicated
CPT/HCPCS: 96366 ×4; 82075; 90471; 96365; 96372; 99285; 36415; 86900; 86901; 84439; 80053 ×2; 84443; 82565; 85025 ×2; 80202; 85610; 85730; 86850; 81003; 80306; 73130; 72125; 70450; 90715; G0378 ×3; G0480 ×2; S4990 ×3; J3370 ×3; J2060; J2270; J1630; J3411; 80320